=== PATIENT | female | born 1980 ===

== ENCOUNTER → 2019-08-11 | Outpatient (CLI) | payer OTHER ==
--- NOTE | 2019-08-11 12:23 | KCIC ---
MR of the right knee HISTORY: Right knee pain, posterolateral. Trampoline injury one month ago. TECHNIQUE: Routine multiplanar sequences are obtained. FINDINGS: No evidence of medial meniscal tear. No evidence of lateral meniscal tear. High-grade tear of the proximal anterior cruciate ligament. Pivot shift bone injuries with a nondisplaced fracture or contusion at the posterior subchondral lateral tibial plateau, and a minimal subchondral marrow contusion at the lateral epicondyle. The posterior cruciate ligament is intact. Medial collateral ligament intact. Iliotibial band unremarkable. Fibular collateral ligament, biceps femoris tendon and popliteus tendon are intact. Extensor mechanism is intact. There is a small joint effusion. Mild chondromalacia at the patellofemoral joint. Mild chondromalacia at the medial joint compartment. No acute articular cartilage defect. No evidence of aggressive bone destruction. Small Wells's cyst. IMPRESSION: 1. Anterior cruciate ligament tear with pivot shift bone injuries. 2. Degenerative chondromalacia. Electronically signed by: Costa Ng MD (08/11/2019 12:20 PM) [id number]
== END | disposition home or self-care (01) ==
LOC: KCIC MRI 09:12
PROVIDERS: ATTEND Family Medicine
DX: S83.511A Sprain of anterior cruciate ligament of right knee, initial encounter (principal); M25.461 Effusion, right knee; M94.261 Chondromalacia, right knee; M71.21 Synovial cyst of popliteal space [Baker], right knee; X58.XXXA Exposure to other specified factors, initial encounter; Y93.89 Activity, other specified; Y92.89 Other specified places as the place of occurrence of the external cause; Y99.8 Other external cause status
CPT/HCPCS: 73721